=== PATIENT | male | born 1995 ===

== ENCOUNTER → 2021-01-19 15:59 | Outpatient (ROUT) | payer OTHER, SELFPAY ==
[2021-01-19 16:19] LABS: Alanine Aminotransferase 29 IU/L (<50); Aspartate Aminotransferase 25 IU/L (17-59)
[2021-01-19 16:23] LABS: COVID19 -Nasal RAPID Negative (Negative)
== END ==
PROVIDERS: Visit Provider Family Medicine
DX: Z20.822 Contact with and (suspected) exposure to COVID-19 (principal); B35.8 Other dermatophytoses
CPT/HCPCS: 84450; 84460; 87635

== ENCOUNTER → 2021-08-24 13:24 | Outpatient (ROUT) | payer OTHER, SELFPAY ==
[2021-08-24 14:24] LABS: COVID19 -Nasal RAPID Negative (Negative)
== END ==
PROVIDERS: Visit Provider Family Medicine
DX: Z20.822 Contact with and (suspected) exposure to COVID-19 (principal)
CPT/HCPCS: 87635